=== PATIENT | female | born 1935 | race Caucasian/White ===

== ENCOUNTER 2017-08-19 13:39 | Outpatient (CLI) | payer MEDICARE, BC ==
[2015-10-30 09:25] VITALS: O2SAT 93
== END 2017-08-19 13:40 | disposition home or self-care (01) | DRG 561 ==
LOC: CONVCARE 13:39
PROVIDERS: ATTEND Orthopaedic Surgery
DX: Z47.1 Aftercare following joint replacement surgery (principal); Z96.653 Presence of artificial knee joint, bilateral
CPT/HCPCS: 73562

== ENCOUNTER 2017-12-16 11:48 | Outpatient (CLI) | payer MEDICARE, BC ==
[2015-10-30 09:25] VITALS: O2SAT 93
== END 2017-12-16 11:49 | disposition home or self-care (01) | DRG 558 ==
LOC: CONVCARE 11:48
PROVIDERS: ATTEND Orthopaedic Surgery
DX: M75.02 Adhesive capsulitis of left shoulder (principal); M77.12 Lateral epicondylitis, left elbow
CPT/HCPCS: 73030; 73070

== ENCOUNTER 2018-08-18 11:30 | Outpatient (CLI) | payer MEDICARE, BC ==
[2015-10-30 09:25] VITALS: O2SAT 93
== END 2018-08-18 11:31 | disposition home or self-care (01) | DRG 566 ==
LOC: CONVCARE 11:30
PROVIDERS: ATTEND Orthopaedic Surgery
DX: Z96.653 Presence of artificial knee joint, bilateral (principal)
CPT/HCPCS: 73562